=== PATIENT | female | born 1995 | race Caucasian/White ===

== ENCOUNTER 2020-09-02 16:08 | Outpatient (REF) | payer OTHER, SELFPAY | END 2020-09-02 16:09 | disposition home or self-care (01) | LOC: HO.LAB 16:08 | PROVIDERS: Visit Provider Internal Medicine | DX: Z20.828 Contact with and (suspected) exposure to other viral communicable diseases (principal) | CPT/HCPCS: 87635 ==

== ENCOUNTER 2020-09-15 03:33 | Outpatient (REF) | payer OTHER, SELFPAY ==
[2020-09-15 05:33] LABS: SARS COV2 PCR INHOUSE NEGATIVE (Negative)
== END 2020-09-15 03:34 | disposition home or self-care (01) ==
LOC: HO.LAB 03:33
PROVIDERS: Visit Provider Internal Medicine
DX: Z20.828 Contact with and (suspected) exposure to other viral communicable diseases (principal)
CPT/HCPCS: 87635

== ENCOUNTER 2020-09-17 07:22 | Outpatient (REF) | payer OTHER, SELFPAY ==
[2020-09-17 08:00] LABS: COVID-19 Test Negative (Negative)
== END 2020-09-17 07:23 | disposition home or self-care (01) ==
LOC: HO.LAB 07:22
PROVIDERS: Visit Provider Internal Medicine
DX: Z20.828 Contact with and (suspected) exposure to other viral communicable diseases (principal)
CPT/HCPCS: 87635